=== PATIENT | male | born 1995 | race Hispanic/Latino ===

== ENCOUNTER 2018-07-07 21:44 | Emergency (ER) | payer SELFPAY ==
--- NOTE | 2018-07-07 23:53 | CT ---
CT OF THE BRAIN WITHOUT CONTRAST: 07/07/18 INDICATION: History of headache. COMPARISON: None. FINDINGS: No acute infarct, hemorrhage or hydrocephalus is present. Septum pellucidum and third ventricle are m idline. Mastoid air cells clear. The paranasal sinuses are clear. The skull is intact. IMPRESSION: No acute intracranial abnormality. POS: [facility]
[2018-07-07] MEDS ORDERED: Acetaminophen 500 MG TAB ONE (23:59)
[2018-07-08] MEDS ORDERED: Metoclopramide HCl 10 MG/2 ML VIAL ONE
[2018-07-08] MEDS ORDERED: diphenhydrAMINE 50 MG/ML VIAL ONE
[2018-07-08] MEDS ORDERED: Proparacaine 0.5% Opth 15 ML BOT ONE (01:08)
[2018-07-08] MEDS ORDERED: methylPREDNISolone Sod Succ/PF 125 MG/2 ML VIAL ONE (01:48)
[2018-07-08] MEDS ORDERED: Magnesium 2 GM/50 ML BAG (IN WATER) ONE (01:48)
--- NOTE | 2018-07-08 07:59 | CT ---
FINAL REPORT CT ANGIOGRAM HEAD WITH CONTRAST: HISTORY: headache. COMPARISON: CT brain of prior day. FINDINGS: CT angiogram head performed after the intravenous administration of contrast. Three-D rendering was provided. Findings and impression are concordant with the preliminary report. POS: [facility]
== END 2018-07-08 02:42 | disposition home or self-care (01) ==
LOC: ERS 21:44
DX: R51 Headache (principal); H00.13 Chalazion right eye, unspecified eyelid
CPT/HCPCS: 70450; 70496; 96365; 96367; 96375; J1200; J2765; J2930; J3475